=== PATIENT | female | born 1970 | race African-American/Black ===

== ENCOUNTER 2019-04-06 14:46 | Inpatient (IN) | payer BC, MEDICAID ==
[~2019-04-06] VITALS: Ht 157.5 cm; Wt 106.6 kg
[2019-04-06] MEDS ORDERED: MORPHINE SULFATE 4 MG/ML CPJ (NOT FOR IM USE) IV STA (17:36)
[2019-04-06] MEDS ORDERED: ONDANSETRON HCL 4MG/2ML INJ IV STA (17:36)
[2019-04-06] MEDS ORDERED: SODIUM CHLORIDE 0.9% 1,000 ML IV ONE (17:36)
[2019-04-06] MEDS ORDERED: NITROGLYCERIN OINT 1GM/INCH UDPKT TD ONE (17:45)
[2019-04-06] MEDS ORDERED: ASPIRIN 81MG TABLET PO ONE (17:45)
[2019-04-06 18:11] LABS: BASOPHILS % 1.6 % (0.0-2.0); EOSINOPHILS % 4.1 % (0.0-5.0); HEMATOCRIT. 34.4 % (36.0-48.0); HEMOGLOBIN. 11.4 g/dL (12.0-16.0); LYMPHOCYTES % 30.7 % (20.0-50.0); MEAN CORPUSCULAR HEMOGLOBIN 26.3 pg (28.0-32.0); MEAN CORPUSCULAR VOLUME 79.5 fL (81.0-99.0); MEAN PLATELET VOLUME 8.4 fl (7.4-10.4); MONOCYTES % 9.1 % (2.0-8.0); NEUTROPHILS % 54.5 % (40.0-76.0); PLATELET 398 x1000/uL (130-400); RED BLOOD CELL COUNT 4.32 mill/uL (4.2-5.4); RED CELL DISTRIBUTION WIDTH 17.2 % (11.6-14.6)
[2019-04-06 18:18] LABS: CHLORIDE 105 mEq/L (98-107)
[2019-04-06 18:25] LABS: ETHANOL BLOOD < 10 mg/dL
[2019-04-06] MEDS ORDERED: KETOROLAC 30MG/ML VIAL IV ONE (18:30)
[2019-04-06 18:38] LABS: HCG SCREEN NEGATIVE
[2019-04-06 18:39] LABS: CLARITY URINE CLOUDY (CLEAR); COLOR URINE YELLOW (YELLOW); KETONES URINE NEGATIVE (NEGATIVE); LEUKOCYTE ESTERASE URINE 1+ (NEGATIVE); NITRITE URINE NEGATIVE (NEGATIVE); OCCULT BLOOD URINE 3+ (NEGATIVE); PROTEIN URINE NEGATIVE (NEGATIVE); SPECIFIC GRAVITY URINE 1.016 (1.005-1.030)
[2019-04-06] MEDS ORDERED: ENALAPRIL 2.5MG/2ML VIAL 2ML IV ONE (19:00)
[2019-04-06 19:41] LABS: *AMPHETAMINES SCREEN URINE NEGATIVE (NEGATIVE); *BARBITURATES SCREEN URINE NEGATIVE (NEGATIVE); *BENZODIAZEPINES SCREEN URINE NEGATIVE (NEGATIVE); *COCAINE SCREEN URINE NEGATIVE (NEGATIVE); METHADONE URINE SCREEN NEGATIVE (NEGATIVE); OPIATES URINE SCREEN NEGATIVE (NEGATIVE); PHENCYCLIDINE URINE SCREEN NEGATIVE (NEGATIVE)
[2019-04-06 19:42] LABS: CANNABINOID URINE SCREEN NEGATIVE (NEGATIVE)
[2019-04-06] MEDS ORDERED: TRAMADOL 50MG TABLET PO ONE (19:45)
[2019-04-06] MEDS ORDERED: ENALAPRIL 1.25MG/ML VIAL 1ML IV NR (19:45)
[2019-04-06] MEDS ORDERED: LEVOFLOXACIN 500MG PREMIX 100 ML IV ONE (20:00)
[2019-04-07] MEDS ORDERED: TRAMADOL 50MG TABLET PO NR (00:45)
[2019-04-07 00:55] VITALS: BP 142/83
[2019-04-07] MEDS ORDERED: CLONIDINE 0.1MG TABLET PO PRN (01:45)
[2019-04-07] MEDS ORDERED: NITROGLYCERIN 0.4MG TABLET SL SL PRN (01:45)
[2019-04-07] MEDS: KETOROLAC 15MG/ML VIAL IV PRN ×2 (02:11→08:40)
[2019-04-07 04:00] VITALS: BP 132/56
[2019-04-07 08:00] VITALS: BP 154/65
[2019-04-07] MEDS: ENOXAPARIN 30MG/0.3ML SYR SUBCUT SCH ×3 (08:37→21:00)
[2019-04-07] MEDS: ASPIRIN 325MG TABLET PO SCH (08:37)
[2019-04-07] MEDS: AMLODIPINE 10MG TABLET PO SCH (08:39)
[2019-04-07] MEDS: METOPROLOL TARTRATE 50MG TABLET PO SCH ×2 (08:39→22:25)
[2019-04-07 09:29] LABS: LDL CHOLESTEROL 72 mg/dL (5-100)
[2019-04-07] MEDS ORDERED: METRONIDAZOLE 500MG TABLET PO NR (09:30)
[2019-04-07 09:31] LABS: HDL CHOLESTEROL 60 mg/dL (40-59); T4 FREE 0.91 ng/dL (0.76-1.46)
[2019-04-07 11:34] VITALS: BP 117/54
[2019-04-07 16:00] VITALS: BP 117/60
[2019-04-07] MEDS ORDERED: SUMATRIPTAN SUCCINATE 6MG/0.5ML VIAL SUBCUT NR (18:00)
[2019-04-07 18:21] LABS: CREATINE KINASE 150 IU/L (26-192)
[2019-04-07 18:23] LABS: CREATINE KINASE MB FRACTION < 1.0 ng/mL (0.5-3.6)
[2019-04-07 20:00] VITALS: BP 133/63
[2019-04-08] VITALS: BP 119/57
[2019-04-08 01:20] LABS: CREATINE KINASE 153 IU/L (26-192)
[2019-04-08 01:21] LABS: CREATINE KINASE MB FRACTION < 1.0 ng/mL (0.5-3.6)
[2019-04-08 04:00] VITALS: BP 137/60
[2019-04-08 08:00] VITALS: BP 145/83
[2019-04-08] MEDS ORDERED: REGADENOSON 0.4 MG/5 ML IV ONE ×2 (08:30→11:57)
[2019-04-08] MEDS: ASPIRIN 325MG TABLET PO SCH (08:40)
[2019-04-08] MEDS: AMLODIPINE 10MG TABLET PO SCH (08:40)
[2019-04-08] MEDS: ENOXAPARIN 30MG/0.3ML SYR SUBCUT SCH (08:42)
[2019-04-08] MEDS: METOPROLOL TARTRATE 50MG TABLET PO SCH (08:42)
[2019-04-08 12:00] VITALS: BP 152/90
[2019-04-08 14:32] VITALS: BP 152/90
== END 2019-04-08 15:21 | disposition home or self-care (01) | DRG 48 ==
LOC: ER 14:46 → 6WST 20:00 → EDBEDREQ 20:08 → EDBEDREQTM 20:08 → EDBEDREQ 20:10 → ENRESERV 21:10
PROVIDERS: ADMIT Internal Medicine; ATTEND Internal Medicine
DX: G90.8 Other disorders of autonomic nervous system (principal); Z68.41 Body mass index [BMI] 40.0-44.9, adult; A59.9 Trichomoniasis, unspecified; E11.9 Type 2 diabetes mellitus without complications; I10 Essential (primary) hypertension; M94.0 Chondrocostal junction syndrome [Tietze]; Z71.3 Dietary counseling and surveillance; E66.9 Obesity, unspecified; Z82.49 Family history of ischemic heart disease and other diseases of the circulatory system; Z88.0 Allergy status to penicillin; Z98.891 History of uterine scar from previous surgery; Z79.82 Long term (current) use of aspirin; Z79.84 Long term (current) use of oral hypoglycemic drugs
CPT/HCPCS: 36415; 71045; 78452; 80061; 80305; 80320; 81003; 82550; 82553; 83036; 83880; 84439; 84443; 84484; 84703; 85379; 93005; 93017; 93306; 93970; 99285; A9500; J1650; J1885; J1956; J2270; J2405; J2785; J3030; J3490; J7030; G0480